=== PATIENT | female | born 1975 | race Caucasian/White ===

== ENCOUNTER 2024-02-10 15:34 | Emergency (ER) | payer OTHER, SELFPAY ==
[2024-02-10 15:43] VITALS: BP 142/90
[2024-02-10 15:44] LABS: Glucose - Point of Care 235 mg/dl (70-99)
[2024-02-10 16:10] LABS: % Basophils 0.8 % (0-2); % Eosinophils 1.6 % (0-6); % Immature Granulocytes 0.4 % (0-0.5); % Lymphocytes 35.9 % (20.5-51.1); % Neutrophils 55.3 % (42.2-75.2); Absolute Basophils 0.1 10^3/uL (0-0.2); Absolute Eosinophils 0.2 10^3/uL (0-0.7); Absolute Lymphocytes 3.9 10^3/uL (1.2-3.4); Absolute Monocytes 0.7 10^3/uL (0.1-0.6); Hematocrit 43.6 % (37.0-47.0); Hemoglobin 14.3 g/dL (12.0-16.0); Mean Corp Hgb Conc. 32.8 g/dL (33.0-37.0); Mean Corpuscular Hgb 25.7 pg (27.0-31.0); Mean Corpuscular Volume 78.3 fL (81.0-99.0); Mean Platelet Volume 10.4 fL (7.4-10.4); Nucleated Red Blood Cells % 0 %; Platelet Count 322 10^3/uL (130-400); Red Blood Cell Count 5.57 10^6/uL (4.20-5.40); Red Cell Dist. Width 13.9 % (11.5-14.5); White Blood Cell Count 10.9 10^3/uL (4.8-10.8)
[2024-02-10 16:26] LABS: ALT (SGPT) 50 U/L (0-35); AST (SGOT) 37 U/L (14-36); Albumin 4.7 g/dl (3.5-5.0); Alkaline Phosphatase 307 U/L (38-126); Blood Urea Nitrogen 14 mg/dl (7-17); Calcium 10.1 mg/dl (8.4-10.2); Carbon Dioxide 25 mmol/L (22-30); Chloride 100 mmol/L (98-107); Glucose 234 mg/dl (70-99); Potassium 4.1 mmol/L (3.5-5.1); Sodium 140 mmol/L (135-145); Total Bilirubin 0.7 mg/dl (0.2-1.3); Total Protein 7.3 g/dl (6.3-8.2); eGFR > 60.00
[2024-02-10 18:48] LABS: Glucose - Point of Care 203 mg/dl (70-99)
[2024-02-10] MEDS: GLUCOPHAGE 500 MG PO (19:42)
[2024-02-10 19:50] VITALS: BP 147/104
[2024-02-10 20:02] LABS: Urine Albumin Negative (Neg - Trace); Urine Bilirubin Negative (Negative); Urine Character Clear (Clear); Urine Color Yellow; Urine Glucose Negative (Negative); Urine Ketone 1+ (Negative); Urine Leukocyte Negative (Negative); Urine Nitrite Negative (Negative); Urine Occult Blood Negative (Negative); Urine Urobilinogen Negative (Neg - 1+)
[2024-02-10 20:13] LABS: Glucose - Point of Care 187 mg/dl (70-99)
--- NOTE | 2024-02-10 20:28 | ED.GENMED ---
History of Present Illness
General
Chief Complaint: Blood Sugar Problem
Source: patient and spouse
Exam Limitations: none
Time Seen by Provider: 02/10/24 17:52
Nursing documentation reviewed up to this point in time: agreed with
History of Present Illness
History of Present Illness:
49-year-old female presenting to the emergency department today with concerns elevated sugar level at home. Went to the urgent care was found to have an elevated sugar level and sent to the ER. She said brain fog increased urination shakiness over
the past few days. Her is diabetic took her blood sugar level which was 351. She tried drinking only water and not eating for half a day and sugar level still in the 300s. Denies any recent illness or fevers.
Review of Systems
Review of Systems
Allergies reviewed?: Yes
All Other Systems: ROS reviewed and negative except as documented in HPI and ROS
Phy Exam
Physical Exam
Physical Exam:
GENERAL: Alert , in no apparent distress
EYE: pupils equal and reactive
NECK: Supple, no significant adenopathy.
ENT: o/p clr, mmm.
CARDIAC: Regular rate and rhythm .
LUNGS: Clear breath sounds bilaterally, no acute respiratory distress, no wheezes/rales/rhonchi
ABDOMEN: Soft, without focal tenderness, no r/g, no cvat
NEUROLOGICAL: Alert and oriented, no focal neuro deficits
SKIN: Warm and dry, skin intact.
MUSCULOSKELETAL: well perfused.
PSYCH: Normal and appropriate interaction.
Course
Orders/Labs/Results
Orders:
Orders
02/10/24 15:52
Complete Blood Count/With Diff Urgent
Comprehensive Metabolic Panel Urgent
02/10/24 19:12
Urinalysis Reflex To Culture Urgent
Date Specimen was Collected: 02/10/24
Time Specimen was Collected: 19:38
METFORMIN HCl [Glucophage] 500 mg PO NOW STA
02/10/24 19:19
Bedside Glucose- Treatment ONCE
02/10/24 19:30
Diabetes Education Consult Routine
Reason for Consult: Other
Newly Diagnosed?: Yes
Abnormal Lab Results
02/10/24 02/10/24 02/10/24
15:42 15:52 18:46
WBC 10.9 H 10^3/uL
(4.8-10.8)
RBC 5.57 H 10^6/uL
(4.20-5.40)
MCV 78.3 L fL
(81.0-99.0)
MCH 25.7 L pg
(27.0-31.0)
MCHC 32.8 L g/dL
(33.0-37.0)
Absolute Lymphs (auto) 3.9 H 10^3/uL
(1.2-3.4)
Absolute Monos (auto) 0.7 H 10^3/uL
(0.1-0.6)
Glucose 234 H mg/dl
(70-99)
AST 37 H U/L
(14-36)
ALT 50 H U/L
(0-35)
Alkaline Phosphatase 307 H U/L
(38-126)
Urine Ketones
POC Glucose 235 H mg/dl 203 H mg/dl
(70-99) (70-99)
02/10/24 02/10/24
19:12 20:11
WBC
RBC
MCV
MCH
MCHC
Absolute Lymphs (auto)
Absolute Monos (auto)
Glucose
AST
ALT
Alkaline Phosphatase
Urine Ketones 1+ A
(Negative)
POC Glucose 187 H mg/dl
(70-99)
02/10/24 15:52
02/10/24 15:52
Vital Signs
Initial and Last Documented VS:
Initial Vital Signs
Temp Pulse Resp BP Pulse Ox
98.0 F 102 16 142/90 98
02/10/24 15:43 02/10/24 15:43 02/10/24 15:43 02/10/24 15:43 02/10/24 15:43
Last Documented Vital Signs
Temp Pulse Resp BP Pulse Ox
98.3 F 78 17 147/104 97
02/10/24 19:50 02/10/24 19:50 02/10/24 19:50 02/10/24 19:50 02/10/24 19:50
MDM/Problems Addressed
MDM/Problems Addressed:
49-year-old female presenting to the emergency department today with concerns of elevated sugar level. Patient initially mildly tachycardic given fluids with improvement. Sugar level in the 200s no signs of DKA also elevated liver function test of
unclear origin advised for close outpatient follow-up of this. Otherwise patient started on metformin and patient had secured outpatient follow-up over the next few days. Otherwise stable for outpatient management return precautions given.
*Critical Care Note
Total Time (30-74mins, 75-104mins- exclusive of procedures): Not Applicable
ED Attending Note
-
Portions of this chart may have been created with voice recognition software.� Occasional wrong word or��sound alike� substitutions may have occurred due to the inherent limitations of voice recognition software.
Discharge Plan
Departure
Patient Disposition: Home (Routine Discharge)
Date of Disposition: 02/10/24
Time of Disposition: 20:28
Patient with high blood pressure during this ER visit?: No
Condition: Good
Covid-19: Not Applicable
Discharge Problem:
Elevated blood sugar level, Elevated liver function tests
Instructions: Type 2 Diabetes (DC), BLOOD PRESSURE
Prescriptions:
New
metformin 500 mg tablet
500 mg PO BID Qty: 20 0RF
Referrals:
[facility] [Provider Group] - Follow up in 2-3 days
NONE,* [Family Provider] -
Stand Alone Forms: Return to Work
Activity Restrictions/Additional Instructions:
You came to the emergency department today with concerns of symptoms that are likely consistent with diabetes. Please make sure you are strict with your diet with decreased sugar intake and increased water intake. Please take metformin twice daily
and follow-up closely with the primary care doctor. Return to the emergency department any worsening, new or concerning symptoms.. Additionally you had slightly elevated liver function test which should be reassessed by the primary care doctor as
well as a slightly elevated blood pressure.
Interventions
Interventions:
*Risk Screen - Suicide Last Done: 02/10/24 15:43
*Neglect/Abuse Screening Last Done: 02/10/24 15:43
*Nursing Disposition Last Done: 02/10/24 20:40
ED- Neurological Assessment Last Done: 02/10/24 18:57
Discharge Date and Time
Discharge Date/Time: 02/10/24 20:40
Print Language: MOHAWK
--- NOTE | 2024-02-11 13:18 | PN.DE ---
Diabetes Education
- -
02/11/2024 Diabetes Education Consult
Patient seen in ED 02/09, dx with new onset diabetes, glucose 234 in ED. She had no history but did c/o brain fog, shakiness, and increased urination. At home she checked her blood sugar with her husbands glucose monitor and it was high prompting
her to come to the ED. She does not have a family doctor.
I called patient to follow up to provide meter and education. She states she has a meter, husbands and she ffels confident with what she is doing. She states she will see a doctor at the clinic in [place] tomorrow, (assume [facility] is seeing [facility]).
My number provided for further questions.
== END 2024-02-10 20:40 | disposition home or self-care (01) ==
LOC: EMR 15:34
PROVIDERS: Physician Assistant; EMERGENCY PHYSICIAN Emergency Medicine
DX: R73.9 Hyperglycemia, unspecified (principal); R74.01 Elevation of levels of liver transaminase levels
CPT/HCPCS: 99283; 80053; 81003; 82962; 85025

== ENCOUNTER → 2024-03-12 11:25 | Outpatient (REF) | payer OTHER, SELFPAY | LOC: HWRAD 11:25 | DX: E78.2 Mixed hyperlipidemia (principal) | CPT/HCPCS: 76700 ==